=== PATIENT | male | born 1975 | race Hispanic/Latino ===

== ENCOUNTER 2019-06-13 15:31 | Emergency (ER) | payer BC ==
[2019-06-13] MEDS ORDERED: ONDANSETRON 4 MG/2 ML INJ IV ONE (15:47)
[2019-06-13] MEDS ORDERED: HYDROmorphone 1 MG/1 ML INJ IV ONE ×3 (15:47→16:49)
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
[2019-06-13 17:19] VITALS: BP 124/77
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
[2019-06-13] MEDS ORDERED: oxyCODONE /ACETAMINOPHEN 5-325MG TAB PO STA (18:00)
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
== END 2019-06-13 18:10 | disposition home or self-care (01) ==
LOC: ED 15:31
DX: S42.021A Displaced fracture of shaft of right clavicle, initial encounter for closed fracture (principal); S16.1XXA Strain of muscle, fascia and tendon at neck level, initial encounter; I10 Essential (primary) hypertension; E78.00 Pure hypercholesterolemia, unspecified; F17.200 Nicotine dependence, unspecified, uncomplicated; Z98.890 Other specified postprocedural states; Z79.2 Long term (current) use of antibiotics; Z79.899 Other long term (current) drug therapy; Z88.2 Allergy status to sulfonamides; V86.99XA Unspecified occupant of other special all-terrain or other off-road motor vehicle injured in nontraffic accident, initial encounter; Y93.89 Activity, other specified; Y92.89 Other specified places as the place of occurrence of the external cause; Y99.8 Other external cause status
CPT/HCPCS: 71045; 72040; 96374; 96375; 96376; 99284; J1170; J2405

== ENCOUNTER 2019-06-16 07:02 | Day surgery (SDC) | payer BC ==
[~2019-06-16 07:02] MED LIST: ceFAZolin/Water 2 GM/20 ML 2 GM/20 ML SYRINGE IV NR
--- NOTE | 2019-06-16 08:53 | Anesthesia Day of Surgery ---
Anesthesia Day of Surgery - Day of Surgery Patient Examined: Yes Patient H&P Reviewed: Yes Patient is NPO: Yes
[2019-06-16] MEDS ORDERED: ONDANSETRON 4 MG/2 ML INJ IV PRN (08:54)
[2019-06-16] MEDS ORDERED: fentaNYL 100 MCG/2 ML INJ IV NR (08:54)
--- NOTE | 2019-06-16 08:54 | Anesthesia Consultation ---
Anesthesia Consult and Med Hx Date of service: 06/16/19 - Airway Anesthetic Teeth Evaluation: Good ROM Head & Neck: Adequate Mental/Hyoid Distance: Adequate Mallampati Class: Class II Intubation Access Assessment: Good - Pre-Operative Health Status ASA Pre-Surgery Classification: ASA2 Proposed Anesthetic Plan: General Nerve Block: IS - Pulmonary Hx Smoking: Yes (CURRENT SMOKER) Hx Asthma: No Hx Respiratory Symptoms: Yes (recent URI now on prednisone and abx) SOB: No (nonproductive cough; No dysnea, fevers, chills) Hx Sleep Apnea: No (ARTUR PRESCREEN LOW RISK) - Cardiovascular System Hx Hypertension: Yes (X 5 YRS) Hx Heart Attack/AMI: No (2FS) - Central Nervous System Hx Seizures: No CVA: No - Gastrointestinal Hx Gastroesophageal Reflux Disease: No - Endocrine Hx Renal Disease: No Hx Liver Disease: No Hx Insulin Dependent Diabetes: No Hx Non-Insulin Dependent Diabetes: No Hx Thyroid Disease: No - Other Systems Hx Alcohol Use: Yes (hx alcoholism; abstinent x 5yrs) Hx Substance Use: Yes (hx opioid abuse; abstinent x5 yrs ) Hx Cancer: No
[2019-06-16] MEDS ORDERED: dexAMETHasone 4 MG/ML VIAL ONE (08:56)
[2019-06-16] MEDS ORDERED: BUPIVACAINE-EPINEPHRINE/PF 0.5%-1:200,000 (30 ML) VIAL INFILTRATI ONE (08:57)
[2019-06-16] MEDS ORDERED: LACTATED RINGERS 1,000 ML IV SCH (09:00)
[2019-06-16] MEDS ORDERED: MIDAZOLAM 2 MG/2 ML INJ IV NR (09:00)
--- NOTE | 2019-06-16 09:30 | Progress Note ---
Regional Anesthesia Block - Regional Anesthesia Block Start Time: 09:10 Stop Time: 09:16 Performed By:: RULA MOON Procedure: Interscalene/ supraclavicular nerve block with ultrasound. ID pt, concent, H/p checked. Time out, sterile prep-drape. Landmarks ID with ultrasound. needle visualized at interscalene, 15 ml Bupivicain / w decadron, after negative aspiration. Landmarks ID with ultrasound, needle visualized at supraclavicular, 10 ml bupivicain w/decardon. vital signs stable after block. pt tolerated procedure well with light sedation.
[2019-06-16] MEDS ORDERED: propofoL 200 MG/20 ML VIAL IV ONE (09:58)
[2019-06-16] MEDS ORDERED: ONDANSETRON 4 MG/2 ML INJ ONE (09:58)
[2019-06-16] MEDS ORDERED: GLYCOPYRROLATE 0.4 MG/2 ML INJ ONE (09:58)
[2019-06-16] MEDS ORDERED: SUCCINYLCHOLINE CHLORIDE 200 MG/10 ML INJ MDV ONE (09:58)
[2019-06-16] MEDS ORDERED: fentaNYL 250 MCG/5 ML INJ ONE (09:58)
[2019-06-16] MEDS ORDERED: LIDOCAINE MPF (2%) 20 MG/1 ML VIAL 5 ML ONE (09:58)
[2019-06-16] MEDS ORDERED: NEOSTIGMINE 10MG/10 ML INJ MDV ONE (09:58)
[2019-06-16] MEDS ORDERED: PHENYLEPHRINE/NS 1,000 MCG/10 ML SYRINGE (OR USE) IV ONE (09:58)
[2019-06-16] MEDS ORDERED: fentaNYL 100 MCG/2 ML INJ ONE ×2 (10:54→12:28)
[2019-06-16] MEDS ORDERED: SODIUM CHLORIDE 0.9% IRR 1,000 ML BOTTLE IR ONE (11:00)
[2019-06-16] MEDS ORDERED: SODIUM CHLORIDE 0.9% IRR 1,500 ML BOTTLE IR ONE (11:17)
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
[2019-06-16] MEDS: HYDROmorphone 1 MG/1 ML INJ IV PRN ×2 (12:55→13:05)
[2019-06-16] MEDS ORDERED: oxyCODONE /ACETAMINOPHEN 5-325MG TAB PO PRN (13:27)
[2019-06-16 14:54] VITALS: BP 106/56
--- NOTE | 2019-06-16 18:01 | Post Anesthesia Evaluation ---
- Post Anesthesia Evaluation Patient Participated: Yes Airway Patent: Yes Stable Respiratory Function: Yes Nausea/Vomiting: No Temp > 96.8F: Yes Pain Manageable: Yes Adequeate Hydration: Yes Anesthesia Complications: No Block Receding Appropriately: No (For postop pain) Patient on Ventilator: No
== END 2019-06-16 07:03 | disposition home or self-care (01) ==
LOC: OR 07:02
PROVIDERS: ATTEND Orthopaedic Surgery
DX: S42.023A Displaced fracture of shaft of unspecified clavicle, initial encounter for closed fracture (principal); F41.9 Anxiety disorder, unspecified; Z72.89 Other problems related to lifestyle; Z88.2 Allergy status to sulfonamides; Z79.899 Other long term (current) drug therapy; Z98.890 Other specified postprocedural states; Z96.643 Presence of artificial hip joint, bilateral; X58.XXXA Exposure to other specified factors, initial encounter; Y93.89 Activity, other specified; Y92.89 Other specified places as the place of occurrence of the external cause; Y99.8 Other external cause status
CPT/HCPCS: 23515; 64415; 73000; C1713; J0330; J1100; J1170; J2250; J2370; J2405; J2704; J2710; J3010; J7120; 64450

== ENCOUNTER 2019-07-08 13:39 | Inpatient (IN) | payer BC ==
[2019-07-08] MEDS ORDERED: SODIUM CHLORIDE 0.9% 1000 ML 1,000 ML IV ONE (14:12)
[2019-07-08] MEDS ORDERED: VANCOMYCIN 2,000 MG in SODIUM CHLORIDE 0.9% 500 ML 500 ML IV ONE (14:30)
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
[2019-07-08 14:49] LABS: Basophils % (Auto) 0.5 % (0.0-1.8); Eosinophils # (Auto) 0.2 K/mm3 (0.0-0.4); Eosinophils % (Auto) 3.5 % (0.0-4.3); Hematocrit 43.2 % (35.5-45.6); Hemoglobin 14.5 gm/dl (11.8-15.2); Lymphocytes % (Auto) 18.7 % (13.4-35.0); Mean Corpuscular HGB Conc 34 % (32-34); Mean Corpuscular Volume 86 fl (84-94); Monocytes # (Auto) 0.2 K/mm3 (0.0-0.8); Monocytes % (Auto) 4.4 % (0.0-7.3); Platelet Count 297 K/mm3 (140-440); Red Blood Count 5.05 M/mm3 (3.65-5.03); Red Cell Distribution Width 14.2 % (13.2-15.2)
[2019-07-08 14:57] LABS: INR 0.99 (0.87-1.13)
[2019-07-08 14:58] LABS: Partial Thromboplastin Time 26.4 Sec. (24.2-36.6)
[2019-07-08] MEDS ORDERED: VANCOMYCIN PHARMACY TO DOSE IV SCH (15:00)
[2019-07-08] MEDS ORDERED: ACETAMINOPHEN 325 MG TAB PO PRN (15:01)
[2019-07-08] MEDS ORDERED: oxyCODONE /ACETAMINOPHEN 5-325MG TAB PO PRN (15:01)
[2019-07-08] MEDS ORDERED: ONDANSETRON 4 MG/2 ML INJ IV PRN (15:01)
--- NOTE | 2019-07-08 15:04 | History and Physical Report ---
History of Present Illness Chief complaint: it hurts over my collarbone History of present illness: 43 YO male with HTN, HLD, Nicotine Dependence presents to ED for evaluation. Patient states that he has experienced pain and redness at the site of his incision over the past 5 days with worsening symptoms over the past 2 days. Patient states that he was able to press on the swollen area which resulted in the extraction of tyree pus. Patient will notify his orthopedic surgeon and the patient was prescribed oral antibiotic therapy. Patient states he has experienced worsening symptoms with oral antibiotic therapy. Patient transported to [facility] via private vehicle for further care and evaluation. Patient seen and evaluated in the emergency department. Lab and imaging studies reviewed. Patient found to have cellulitis at the site of his incision. Patient treated with IV antibiotic therapy. Orthopedic surgery team consulted in ED. Patient admitted to surgical floor. Patient denies fever, chills, chest pain, palpitations, trauma, productive cough, or recent ill contacts. No prior admission for review. All medication listed at the time of admission have been reconciled. Past History Past Medical History: hypertension, hyperlipidemia, other (See HPI) Past Surgical History: appendectomy, Other (Bilateral hip surgery, right clavicle fracture repair) Social history: , lives with family, smoking Medications and Allergies Allergies Allergy/AdvReac Type Severity Reaction Status Date / Time Sulfa (Sulfonamide Allergy Hives Verified 07/08/19 13:41 Antibiotics) Home Medications Medication Instructions Recorded Confirmed Last Taken Type AtorvaSTATin [Lipitor] 20 mg PO QHS 02/16/18 07/08/19 07/08/19 History Ibuprofen [Advil 100 MG tab] 2 tab PO PRN PRN 02/16/18 07/08/19 07/07/19 History Lisdexamfetamine Dimesylate 60 mg PO QAM 02/16/18 07/08/19 07/08/19 History [Vyvanse] Loratadine (Nf) [Claritin] 10 mg PO DAILY 02/16/18 07/08/19 07/08/19 History Pantoprazole [Protonix] 40 mg PO QDAY 02/16/18 07/08/19 07/08/19 History busPIRone [Buspar] 10 mg PO DAILY 02/16/18 07/08/19 07/08/19 History Colchicine [Colcrys] 0.6 mg PO PRN 06/15/19 07/08/19 07/08/19 History Diclofenac Sodium 75 mg PO BID #60 tablet. 06/16/19 07/08/19 07/07/19 Rx Ascorbic Acid [Vitamin C] 1,000 mg PO 07/08/19 07/08/19 History Vitamin D3 1,000 UNIT TAB 1,000 units PO DAILY 07/08/19 07/08/19 07/08/19 History Active Meds: Active Medications Acetaminophen (Tylenol) 650 mg PO Q4H PRN PRN Reason: Pain MILD(1-3)/Fever >100.5/SHAFFER Sodium Chloride (Nacl 0.9% 1000 Ml) 1,000 mls @ 999 mls/hr IV BOLUS ONE Stop: 07/08/19 15:12 Last Admin: 07/08/19 14:31 Dose: 999 mls/hr Documented by: Vancomycin HCl 2,000 mg/ (Sodium Chloride) 540 mls @ 250 mls/hr IV ONCE ONE Stop: 07/08/19 16:39 Last Admin: 07/08/19 14:48 Dose: 250 mls/hr Documented by: Ondansetron HCl (Zofran) 4 mg IV Q8H PRN PRN Reason: Nausea And Vomiting Oxycodone/Acetaminophen (Percocet 5/325) 1 tab PO Q12H PRN PRN Reason: Pain, Moderate (4-6) Sodium Chloride (Sodium Chloride Flush Syringe 10 Ml) 10 ml IV BID POP Sodium Chloride (Sodium Chloride Flush Syringe 10 Ml) 10 ml IV PRN PRN PRN Reason: LINE FLUSH Review of Systems Constitutional: no weight loss, no weight gain, no fever, no chills Ears, nose, mouth and throat: no ear pain, no ear discharge, no tinnitis, no decreased hearing, no nasal congestion, no nasal discharge Cardiovascular: no chest pain, no orthopnea, no palpitations, no edema, no synco pe Respiratory: no cough with sputum, no excessive sputum, no hemoptysis, no shortness of breath, no dyspnea on exertion Gastrointestinal: no abdominal pain, no nausea, no vomiting, no diarrhea, no change in bowel habits Genitourinary Male: no hematuria, no flank pain, no discharge, no urinary frequency, no urinary hesitancy Rectal: no pain, no incontinence, no bleeding Musculoskeletal: other (Redness and tenderness and tenderness to the right clavicular area) Integumentary: no rash, no pruritis, no sores, no wounds Neurological: no transient paralysis, no paralysis, no numbness, no seizures, no syncope Psychiatric: no anxiety, no memory loss, no change in sleep habits, no insomnia, no hypersomnia, no change in appetite, no change in libido Endocrine: no cold intolerance, no polyphagia, no excessive thirst, no polyuria, no nocturia Hematologic/Lymphatic: no easy bruising, no easy bleeding, no lymphedema Allergic/Immunologic: no anaphylaxis Exam - Constitutional Vitals: Temp Pulse Resp BP Pulse Ox 98.1 F 70 17 127/74 98 07/08/19 13:41 07/08/19 14:30 07/08/19 14:30 07/08/19 14:30 07/08/19 14:30 General appearance: Present: mild distress - EENT Eyes: Present: PERRL ENT: hearing intact, clear oral mucosa - Neck Neck: Present: supple, normal ROM - Respiratory Respiratory effort: normal Respiratory: bilateral: CTA - Cardiovascular Heart Sounds: Present: S1 & S2. Absent: rub, click - Extremities Extremities: pulses symmetrical, No edema Extremity abnormal: erythema, other (Right supraclavicular area along the incision site) Peripheral Pulses: within normal limits - Abdominal General gastrointestinal: Present: soft, non-tender, non-distended, normal bowel sounds Male genitourinary: Present: normal - Integumentary Integumentary: Present: clear, warm, dry - Musculoskeletal Musculoskeletal: gait normal, strength equal bilaterally - Psychiatric Psychiatric: appropriate mood/affect, intact judgment & insight - Neurologic Neurologic: CNII-XII intact, moves all extremities Results - Labs CBC & Chem 7: 07/08/19 14:28 07/08/19 14:28 Labs: Abnormal lab results 07/08/19 Range/Units 14: RBC 5.05 H (3.65-5.03) M/mm3 Lymph # 1.0 L (1.2-5.4) K/mm3 Seg Neutrophils % 72.9 H (40.0-70.0) % Assessment and Plan - Patient Problems (1) Cellulitis Current Visit: Yes Status: Acute Qualifiers: Site of cellulitis of trunk: chest wall Plan to address problem: Right supraclavicular cellulitis along the incision site. Orthopedic surgery service consulted. Patient treated with IV vancomycin, pain control, supportive care, CBC, CMP. (2) Nicotine dependence Current Visit: Yes Status: Acute Qualifiers: Nicotine product type: cigarettes Substance use status: in withdrawal Qualified Code(s): F17.213 - Nicotine dependence, cigarettes, with withdrawal Plan to address problem: Nicotine transdermal patch 7 mg daily, remove nightly. Supportive care, behavior change counseling, +15 minutes (3) Hypertension Current Visit: Yes Status: Acute Qualifiers: Hypertension type: essential hypertension Qualified Code(s): I10 - Essential (primary) hypertension Plan to address problem: Monitor blood pressure every shift, continue medical management, supportive car e. (4) Hyperlipidemia Current Visit: Yes Status: Acute Qualifiers: Hyperlipidemia type: mixed hyperlipidemia Qualified Code(s): E78.2 - Mixed hyperlipidemia Plan to address problem: Low-cholesterol diet, supportive care (5) DVT prophylaxis Current Visit: Yes Status: Acute Plan to address problem: SCD to bilateral lower extremities while in bed, patient is ambulatory.
[2019-07-08] MEDS ORDERED: ZOLPIDEM 5 MG TAB PO PRN (15:05)
[2019-07-08] MEDS ORDERED: LORazepam 2 MG/ML VIAL IV PRN (15:05)
[2019-07-08 15:08] LABS: Alanine Aminotransferase 36 units/L (7-56); Albumin 4.3 g/dL (3.9-5); BUN/Creatinine Ratio 17; Blood Urea Nitrogen 15 mg/dL (9-20); Calcium 9.7 mg/dL (8.4-10.2); Hemolysis Index 4
[2019-07-08 15:12] LABS: Bilirubin,Direct < 0.2 mg/dL (0-0.2)
--- NOTE | 2019-07-08 15:20 | XRay Report ---
CHEST 1 VIEW 07/08/2019 2:12 PM INDICATION / CLINICAL INFORMATION: hypertension. COMPARISON: One view of the chest from 06/13/2019. FINDINGS: SUPPORT DEVICES: None. HEART / MEDIASTINUM: No significant abnormality. LUNGS / PLEURA: No significant pulmonary or pleural abnormality. No pneumothorax. ADDITIONAL FINDINGS: There has been interval ORIF of the right clavicle fracture. No additional signi ficant findings. IMPRESSION: 1. No acute abnormality of the chest. Signer Name: Devin Trinidad MD Signed: 07/08/2019 3:16 PM Workstation Name: [id number]
[2019-07-08] MEDS ORDERED: NICOTINE 7 MG/24 HR PATCH TD ONE (16:00)
[2019-07-08] MEDS: busPIRone 10 MG TAB PO SCH (22:45)
[2019-07-09] MEDS: VANCOMYCIN 1,500 MG in SODIUM CHLORIDE 0.9% 500 ML 500 ML IV SCH ×2 (04:38→15:46)
[2019-07-09] MEDS ORDERED: COLCHICINE 0.6 MG CAP PO SCH (10:00)
[2019-07-09] MEDS ORDERED: NON-FORMULARY EACH (Colchicine [Colcrys] 0.6 MG) PO SCH (10:00)
[2019-07-09] MEDS ORDERED: NON-FORMULARY EACH (Loratadine (Nf) 10 MG) PO SCH (10:00)
[2019-07-09] MEDS ORDERED: PANTOPRAZOLE 40 MG TAB PO SCH (10:00)
[2019-07-09] MEDS ORDERED: CETIRIZINE 10 MG TAB PO SCH (10:00)
[2019-07-09] MEDS ORDERED: LISDEXAMFETAMINE DIMESYLATE 60 MG PO SCH (10:00)
[2019-07-09] MEDS: busPIRone 10 MG TAB PO SCH (10:18)
--- NOTE | 2019-07-09 12:04 | Consultation ---
History of Present Illness - HPI Consult date: 07/09/19 Consult reason: joint pain History of present illness: 43 y/o male with c/o right shoulder pain and swelling, hx of recent ORIF right clavicle fracture..states began having pain and swelling few days prior to admi ssion, working in yard digging posts when symptoms began... Past History Past Medical History: hypertension, hyperlipidemia, other (See HPI) Past Surgical History: appendectomy, Other (Bilateral hip surgery, right clavicle fracture repair) Social history: , lives with family, smoking Medications and Allergies Allergies Allergy/AdvReac Type Severity Reaction Status Date / Time Sulfa (Sulfonamide Allergy Hives Verified 07/08/19 13:41 Antibiotics) Home Medications Medication Instructions Recorded Confirmed Last Taken Type AtorvaSTATin [Lipitor] 20 mg PO QHS 02/16/18 07/08/19 07/08/19 History Ibuprofen [Advil 100 MG tab] 2 tab PO PRN PRN 02/16/18 07/08/19 07/07/19 History Lisdexamfetamine Dimesylate 60 mg PO QAM 02/16/18 07/08/19 07/08/19 History [Vyvanse] Loratadine (Nf) [Claritin] 10 mg PO DAILY 02/16/18 07/08/19 07/08/19 History Pantoprazole [Protonix] 40 mg PO QDAY 02/16/18 07/08/19 07/08/19 History busPIRone [Buspar] 10 mg PO DAILY 02/16/18 07/08/19 07/08/19 History Colchicine [Colcrys] 0.6 mg PO PRN 06/15/19 07/08/19 07/08/19 History Diclofenac Sodium 75 mg PO BID #60 tablet. 06/16/19 07/08/19 07/07/19 Rx Ascorbic Acid [Vitamin C] 1,000 mg PO QDAY 07/08/19 07/09/19 07/08/19 History Vitamin D3 1,000 UNIT TAB 1,000 units PO DAILY 07/08/19 07/08/19 07/08/19 History Active Meds: Active Medications Acetaminophen (Tylenol) 650 mg PO Q4H PRN PRN Reason: Pain MILD(1-3)/Fever >100.5/SHAFFER Last Admin: 07/08/19 22:43 Dose: 650 mg Documented by: Atorvastatin Calcium (Lipitor) 20 mg PO QHS [facility] Last Admin: 07/08/19 22:44 Dose: 20 mg Documented by: Buspirone HCl (Buspar) 10 mg PO BID [facility] Last Admin: 07/09/19 10:18 Dose: 10 mg Documented by: Cetirizine HCl (Cetirizine) 10 mg PO DAILY [facility] Last Admin: 07/09/19 10:18 Dose: 10 mg Documented by: Colchicine (Colchicine) 0.6 mg PO QDAY [facility] Last Admin: 07/09/19 10:20 Dose: Not Given Documented by: Vancomycin HCl 1,500 mg/ (Sodium Chloride) 530 mls @ 333.333 mls/hr IV Q12H [facility] Last Admin: 07/09/19 04:38 Dose: 333.333 mls/hr Documented by: Lorazepam (Ativan) 1 mg IV Q12H PRN PRN Reason: Agitation Miscellaneous Medication (Lisdexamfetamine Dimesylate [Vyvanse]) 60 mg PO QAM [facility] Ondansetron HCl (Zofran) 4 mg IV Q8H PRN PRN Reason: Nausea And Vomiting Oxycodone/Acetaminophen (Percocet 5/325) 1 tab PO Q12H PRN PRN Reason: Pain, Moderate (4-6) Last Admin: 07/09/19 10:26 Dose: 1 tab Documented by: Pantoprazole Sodium (Protonix) 40 mg PO QDAY [facility] Last Admin: 07/09/19 10:18 Dose: 40 mg Documented by: Sodium Chloride (Sodium Chloride Flush Syringe 10 Ml) 10 ml IV BID [facility] Last Admin: 07/09/19 10:18 Dose: 10 ml Documented by: Sodium Chloride (Sodium Chloride Flush Syringe 10 Ml) 10 ml IV PRN PRN PRN Reason: LINE FLUSH Zolpidem Tartrate (Ambien) 5 mg PO QHS PRN PRN Reason: Sleep Last Admin: 07/08/19 22:43 Dose: 5 mg Documented by: Physical Examination - Physical exam Narrative exam: Afebile right shoulder - +erythema along medial border incision, no active drainage noted, good active ROM noted Eyes: PERRL ENT: Positive: clear oral mucosa Respiratory effort: normal Respiratory: bilateral: CTA Rhythm: regular Heart Sounds: Positive: S1 & S2 General gastrointestinal: Positive: soft, non-tender, non-distended, normal bowel sounds Integumentary: clear, warm, dry Neurologic: Positive: CNII-XII intact, moves all extremities, gait normal. Negative: focal deficits Assessment and Plan cellulitis right shoulder continue antibiotics, may dc to home with f/u in office 1 wk
--- NOTE | 2019-07-09 13:17 | Discharge Summary ---
Providers - Providers Date of Admission: 07/08/19 15:01 Attending physician: LINDA MENDEZ 07/08/19 14:13 Consult to Physician [CONS] Stat Comment: Consulting Provider: KALI GAN Physician Instructions: Reason For Exam: Postop infection Primary care physician: [employer]GER Hospitalization Condition: Stable Hospital course: 43 YO male with HTN, HLD, Nicotine Dependence presents to ED for evaluation. Patient stated that he has experienced pain and redness at the site of his incision over the previous 5 days with worsening symptoms over the past 2 days. Patient seen and evaluated in the emergency department. Lab and imaging studies reviewed. Patient found to have cellulitis at the site of his incision. Patient treated with IV antibiotic therapy. Orthopedic surgery team consulted in ED. Patient admitted to surgical floor. Patient convalesced well during hospital course with improvement in symptoms and decreased erythema and in duration at surgical site. Patient seen and evaluated by orthopedic surgery service and patient cleared for discharge home. Patient instructed to follow with orthopedic surgery as directed. Patient discharged home with oral antibiotic therapy and outpatient consult for physical therapy for cervical radiculopathy. Patient seen and evaluated prior to discharge with no significant new physical exam findings. 35 minutes dedicated to patient discharge Disposition: DC-01 TO HOME OR SELFCARE - Discharge Diagnoses (1) Cellulitis Status: Acute Qualifiers: Site of cellulitis of trunk: chest wall (2) Nicotine dependence Status: Acute Qualifiers: Nicotine product type: cigarettes Substance use status: in withdrawal Qualified Code(s): F17.213 - Nicotine dependence, cigarettes, with withdrawal (3) Hypertension Status: Acute Qualifiers: Hypertension type: essential hypertension Qualified Code(s): I10 - Essential (primary) hypertension (4) Hyperlipidemia Status: Acute Qualifiers: Hyperlipidemia type: mixed hyperlipidemia Qualified Code(s): E78.2 - Mixed hyperlipidemia (5) DVT prophylaxis Status: Acute (6) Cervical radiculopathy Status: Acute Comment: Outpatient physical therapy. Core Measure Documentation - Palliative Care Palliative Care/ Comfort Measures: Not Applicable - Core Measures Any of the following diagnoses?: none Exam - Constitutional Vitals: Temp Pulse Resp BP Pulse Ox 98.0 F 63 18 118/72 98 07/09/19 07:57 07/09/19 07:57 07/09/19 07:57 07/09/19 07:57 07/09/19 10:50 General appearance: Present: no acute distress, well-nourished - EENT Eyes: Present: PERRL ENT: hearing intact, clear oral mucosa - Neck Neck: Present: supple, normal ROM - Respiratory Respiratory effort: normal Respiratory: bilateral: CTA - Cardiovascular Heart Sounds: Present: S1 & S2. Absent: rub, click - Extremities Extremities: pulses symmetrical, No edema Peripheral Pulses: within normal limits - Abdominal General gastrointestinal: Present: soft, non-tender, non-distended, normal bowel sounds Male genitourinary: Present: normal - Integumentary Integumentary: Present: clear, warm, dry - Musculoskeletal Musculoskeletal: gait normal, strength equal bilaterally - Psychiatric Psychiatric: appropriate mood/affect, intact judgment & insight - Neurologic Neurologic: CNII-XII intact, moves all extremities Plan Activity: advance as tolerated Diet: low fat, low cholesterol Follow up with: PRIMARY CARE, [Primary Care Provider] - 7 Days Prescriptions: Clindamycin [Clindamycin CAP] 150 mg PO Q8HR #21 capsule traMADoL [Ultram 50 MG tab] 50 mg PO Q6HR PRN #10 tablet PRN Reason: Pain Other Discharge Orders: Physicial Therapy (Amb) Location: None Selected
[2019-07-09 14:29] VITALS: BP 114/70
== END 2019-07-09 16:19 | disposition home or self-care (01) | DRG 863 ==
LOC: ED 13:39 → 2B-ACE 15:01
PROVIDERS: ADMIT Internal Medicine; ATTEND Internal Medicine
DX: T81.41XA Infection following a procedure, superficial incisional surgical site, initial encounter (principal); F17.213 Nicotine dependence, cigarettes, with withdrawal; L03.90 Cellulitis, unspecified; L03.313 Cellulitis of chest wall; Y83.8 Other surgical procedures as the cause of abnormal reaction of the patient, or of later complication, without mention of misadventure at the time of the procedure; I10 Essential (primary) hypertension; Z88.2 Allergy status to sulfonamides; E78.00 Pure hypercholesterolemia, unspecified; E78.5 Hyperlipidemia, unspecified; Z90.49 Acquired absence of other specified parts of digestive tract; Z71.6 Tobacco abuse counseling; Y92.098 Other place in other non-institutional residence as the place of occurrence of the external cause
CPT/HCPCS: 36415; 71045; 80048; 80076; 82140; 83735; 85025; 85610; 85730; 87040; 87116; 87641; 99406; G0378; A9270-GY; J3370; J7030; J7040

== ENCOUNTER 2019-07-28 09:46 | Outpatient (CLI) | payer BC ==
--- NOTE | 2019-07-28 12:52 | Magnetic Resonance Report ---
MRI CERVICAL SPINE WITHOUT CONTRAST INDICATION / CLINICAL INFORMATION: Neck and right shoulder pain. RADICULOPATHY,OTHER ACUTE POST PROCEDURAL PAIN, RIGHT SHOULDER PAIN . TECHNIQUE: Multisequence, multiplanar images of the cervical spine were obtained. COMPARISON: Cervical spine series 06/13/2019 FINDINGS: CRANIOCERVICAL JUNCTION:No significant abnormality. ALIGNMENT: No significant abnormality. VERTEBRAE:Normal marrow signal and vertebral body height for age. VISUALIZED SPINAL CORD: No cord signal abnormality. ADSCR-PH-CKCNE ANALYSIS: C1-2: There is interruption of the posterior spinal laminar line at the atlantoaxial junction with re sultant narrowing of the central spinal canal without central canal stenosis. The articulation betwee n the anterior arch of C1 and the odontoid process has an unremarkable appearance aside from mild ost eoarthritic change. C2-3: No significant disc abnormality, spinal canal stenosis, or neural foraminal stenosis. C3-4: A small central disc protrusion flattens the thecal sac slightly. Facet and uncovertebral arthr opathy is noted contributing to moderate left-sided foraminal stenosis. Central spinal canal and righ t C4 nerve root foramina are adequately maintained. C4-5: Mild disc desiccation is noted. Small central disc protrusion flattens the thecal sac slightly. Central spinal canal and neuroforamina are adequately maintained. C5-6: Disc desiccation is noted. There is a small left paracentral disc protrusion flattening the the angelia sac slightly. Moderate left-sided and mild right-sided neuroforaminal narrowing is present. C6-7: Central and left paracentral disc protrusion versus thecal sac deformity. Moderate left-sided C 7 nerve root neuroforaminal stenosis is evident. C7-T1: Small central disc protrusion flattens the thecal sac slightly. Central spinal canal and neuro foramina are adequately maintained. PARASPINAL SOFT TISSUES: No significant abnormality. ADDITIONAL FINDINGS: None. IMPRESSION: 1. Widespread cervical spondylosis with multifocal neuroforaminal stenosis as described level by mitesh friedman above. 2. Multiple small disc protrusions are identified large disease are at the C5-6 and C6 levels.. 3. No intrinsic cord lesions are identified. There is no indication of cord compression. Signer Name: Salvador Broderick MD Signed: 07/28/2019 12:48 PM Workstation Name: [id number]
--- NOTE | 2019-07-28 15:16 | Magnetic Resonance Report ---
MRI chest without contrast INDICATION: MAIN: RADICULOPATHY,OTHER ACUTE POST PROCEDURAL PAIN NECK AND RT SHOULDER PAIN. COMPARISON: MRI of the cervical spine from today and right clavicle radiograph from 06/16/2019 FINDINGS: There is mild metallic streak artifact over the mid shaft of the right clavicle generated by the malleable fixation plate. Otherwise, there is no acute osseous abnormality. Mild degenerative changes are present in the spine and shoulders. No compressive mass or collection identified. Normal vascular flow voids are present. IMPRESSION: No acute abnormality identified. Please refer to the MRI cervical spine report from [facility] for further details, especially since radiculopathy symptoms commonly originate from the spine. Signer Name: Adolfo Carreon MD Signed: 07/28/2019 3:12 PM Workstation Name: [id number]
== END 2019-07-28 09:47 | disposition home or self-care (01) ==
LOC: MRI 09:46
PROVIDERS: ATTEND Emergency Medicine
DX: M50.23 Other cervical disc displacement, cervicothoracic region (principal); M47.814 Spondylosis without myelopathy or radiculopathy, thoracic region; M19.011 Primary osteoarthritis, right shoulder; M54.12 Radiculopathy, cervical region; G89.18 Other acute postprocedural pain
CPT/HCPCS: 71550; 72141

== ENCOUNTER 2019-08-03 09:28 | Outpatient (CLI) | payer BC ==
--- NOTE | 2019-08-03 10:24 | XRay Report ---
RIGHT SHOULDER 3 VIEWS INDICATION / CLINICAL INFORMATION: S42.021A Displaced fracture of shaft of right clavicle, initial en COMPARISON: 06/16/2019. FINDINGS: BONES / JOINT(S): There is a comminuted, displaced/distracted fracture of the right mid clavicle. A m etallic plate and screws transfix the fracture, similar to the prior exam. Bony callus formation appe ars new. No acute abnormality is seen. SOFT TISSUES: No significant abnormality. ADDITIONAL FINDINGS: The visualized portion of the right lung is clear. Signer Name: Will Dennis MD Signed: 08/03/2019 10:20 AM Workstation Name: [id number]
== END 2019-08-03 09:29 | disposition home or self-care (01) ==
LOC: XRAY 09:28
PROVIDERS: ATTEND Orthopaedic Surgery
DX: S42.021A Displaced fracture of shaft of right clavicle, initial encounter for closed fracture (principal); X58.XXXA Exposure to other specified factors, initial encounter; Y93.89 Activity, other specified; Y92.89 Other specified places as the place of occurrence of the external cause; Y99.8 Other external cause status

== ENCOUNTER 2019-12-08 13:12 | Outpatient (CLI) | payer BC ==
[2019-12-08 13:40] LABS: Hematocrit 45.5 % (35.5-45.6); Hemoglobin 15.6 gm/dl (11.8-15.2); Mean Corpuscular HGB Conc 34 % (32-34); Mean Corpuscular Volume 85 fl (84-94); Platelet Count 271 K/mm3 (140-440); Red Blood Count 5.33 M/mm3 (3.65-5.03); Red Cell Distribution Width 14.3 % (13.2-15.2)
[2019-12-08 13:57] LABS: Alanine Aminotransferase 24 units/L (7-56); Albumin 4.6 g/dL (3.9-5); BUN/Creatinine Ratio 16; Blood Urea Nitrogen 14 mg/dL (9-20); Calcium 9.8 mg/dL (8.4-10.2); Chol/HDL Ratio 4.45 %; HDL Cholesterol 53 mg/dL (40-59); Hemolysis Index 9; LDL Cholesterol,Direct 190 mg/dL (50-130)
== END 2019-12-08 13:13 | disposition home or self-care (01) ==
LOC: LAB 13:12
PROVIDERS: ATTEND Family Medicine
DX: E78.5 Hyperlipidemia, unspecified (principal)
CPT/HCPCS: 36415; 80053; 80061; 85027

== ENCOUNTER 2020-04-20 11:20 | Outpatient (CLI) | payer BC ==
[2020-04-20 12:02] LABS: Alanine Aminotransferase 42 units/L (7-56); Albumin 4.9 g/dL (3.9-5); BUN/Creatinine Ratio 15; Blood Urea Nitrogen 15 mg/dL (9-20); Calcium 9.6 mg/dL (8.4-10.2); Chol/HDL Ratio 2.48 %; HDL Cholesterol 58 mg/dL (40-59); Hemolysis Index 9; LDL Cholesterol,Direct 90 mg/dL (50-130)
== END 2020-04-20 11:21 | disposition home or self-care (01) ==
LOC: LAB 11:20
PROVIDERS: ATTEND Family Medicine
DX: R68.82 Decreased libido (principal)
CPT/HCPCS: 36415; 80053; 80061

== ENCOUNTER 2020-08-15 09:58 | Outpatient (CLI) | payer BC ==
--- NOTE | 2020-08-15 10:41 | XRay Report ---
RIGHT CLAVICLE 2 VIEWS INDICATION: DISPLACED FX W ROUTINE HEALING. COMPARISON: 10/19/2019. IMPRESSION: The internally fixated right clavicle fracture is unchanged in position and alignment si nce 1120 exam. No acute osseous abnormality is identified. Mild acromioclavicular osteoarthritis is stable. Signer Name: Viktor Breen Jr, MD Signed: 08/15/2020 10:36 AM Workstation Name: [id number]
== END 2020-08-15 09:59 | disposition home or self-care (01) ==
LOC: XRAY 09:58
PROVIDERS: ATTEND Orthopaedic Surgery
DX: S42.021D Displaced fracture of shaft of right clavicle, subsequent encounter for fracture with routine healing (principal); M19.09 Primary osteoarthritis, other specified site; X58.XXXD Exposure to other specified factors, subsequent encounter

== ENCOUNTER 2021-04-03 09:58 | Outpatient (CLI) | payer BC ==
[2021-04-03 11:13] LABS: Basophils % (Auto) 0.3 % (0.0-1.8); Eosinophils # (Auto) 0.1 K/mm3 (0.0-0.4); Eosinophils % (Auto) 1.8 % (0.0-4.3); Hematocrit 46.4 % (35.5-45.6); Hemoglobin 15.4 gm/dl (11.8-15.2); Lymphocytes # (Auto) 1.1 K/mm3 (1.2-5.4); Lymphocytes % (Auto) 16.2 % (13.4-35.0); Mean Corpuscular HGB Conc 33 % (32-34); Mean Corpuscular Volume 87 fl (84-94); Monocytes # (Auto) 0.3 K/mm3 (0.0-0.8); Monocytes % (Auto) 5.1 % (0.0-7.3); Platelet Count 268 K/mm3 (140-440); Red Blood Count 5.32 M/mm3 (3.65-5.03); Red Cell Distribution Width 13.9 % (13.2-15.2)
[2021-04-03 12:01] LABS: Alanine Aminotransferase 42 units/L (7-56); BUN/Creatinine Ratio 13; Blood Urea Nitrogen 12 mg/dL (9-20); Calcium 9.9 mg/dL (8.4-10.2); Chol/HDL Ratio 2.53 %; HDL Cholesterol 58 mg/dL (40-59); Hemolysis Index 10; LDL Cholesterol,Direct 88 mg/dL (50-130)
== END 2021-04-03 09:59 | disposition home or self-care (01) ==
LOC: LAB 09:58
PROVIDERS: ATTEND Family Medicine
DX: E78.2 Mixed hyperlipidemia (principal)
CPT/HCPCS: 36415; 80053; 80061; 85025